=== PATIENT | male | born 1980 | race Caucasian/White ===

== ENCOUNTER 2024-10-07 12:04 | Day surgery (SDC) | payer BC ==
[2024-10-07] MEDS ORDERED: Ketorolac Tromethamine 30 MG (1 mL) VIAL ONE (12:44)
[2024-10-07] MEDS ORDERED: Acetaminophen 500 MG TAB ONE (12:45)
[2024-10-07] MEDS ORDERED: Bupivacaine/Epinephrine 0.25% 30 ML VIAL ONE (13:00)
[2024-10-07] MEDS ORDERED: CEFAZOLIN 2 GM VIAL ONE (13:48)
[2024-10-07] MEDS ORDERED: Lidocaine 2% PF 5 ML VIAL ONE (13:49)
[2024-10-07] MEDS ORDERED: PROPOFOL 20 ML ONE ×2 (13:50→14:01)
[2024-10-07] MEDS ORDERED: fentaNYL 50 mcg/mL 1 mL Vial ONE ×2 (14:08→14:18)
[2024-10-07] MEDS ORDERED: Dexamethasone 4 mg/ml Vial ONE (14:22)
[2024-10-07] MEDS ORDERED: Ondansetron PF 4 MG/2 ML Vial ONE (14:22)
== END 2024-10-07 16:00 | disposition home or self-care (01) ==
LOC: CSHSDC 12:04
PROVIDERS: ATTEND Specialist
PROC: 0JH63WZ Insertion of Totally Implantable Vascular Access Device into Chest Subcutaneous Tissue and Fascia, Percutaneous Approach (ICD-10-PCS; principal; 2024-10-07)
DX: C50.921 Malignant neoplasm of unspecified site of right male breast (principal); I10 Essential (primary) hypertension; E11.9 Type 2 diabetes mellitus without complications; E66.01 Morbid (severe) obesity due to excess calories; Z68.41 Body mass index [BMI] 40.0-44.9, adult
CPT/HCPCS: 71045; C1788; J1100; J1642; J1885; J2405; J2704; J3010

== ENCOUNTER 2024-11-28 08:12 | Outpatient (CLI) | payer BC | END 2024-11-28 08:13 | disposition home or self-care (01) | LOC: CSHWCC 08:12 | PROVIDERS: ATTEND Nurse Practitioner Family | DX: S21.001D Unspecified open wound of right breast, subsequent encounter (principal); C50.921 Malignant neoplasm of unspecified site of right male breast | CPT/HCPCS: 99214; G0463 ==